=== PATIENT | male | born 1990 | race Caucasian/White ===

== ENCOUNTER 2020-06-20 23:04 | Inpatient (IN) | payer OTHER ==
[~2020-06-20] VITALS: Ht 162.6 cm; Wt 56.7 kg
[2020-06-21 01:51] LABS: CALCIUM 8.5 mg/dL (8.5-10.1); CARBON DIOXIDE 27.2 mmol/L (21-32); CHLORIDE SERUM 105 mmol/L (98-107); CREATININE SERUM 1.4 mg/dL (0.7-1.3); GFR1 > 60 mL/min; GLUCOSE SERUM 184 mg/dL (74-106); POTASSIUM SERUM 3.8 mmol/L (3.5-5.1); SODIUM SERUM 142 mmol/L (136-145)
[2020-06-21 02:11] LABS: BASOPHIL % 0 % (0-2); PLATELET COUNT 365 x10^3mcL (130-400); RED CELL DISTRIBUTION WIDTH 14.2 % (11.5-14.5)
[2020-06-21 02:54] LABS: UA SPECIFIC GRAVITY >=1.030 (1.005-1.035); microscopic required? YES; urine erythrocyte 3+ (NEGATIVE)
[2020-06-21 03:10] VITALS: BP 101/60
[2020-06-21 03:12] LABS: ALBUMIN 3.4 g/dL (3.4-5.0); ALT/SGPT 33 U/L (16-63); AST/SGOT 77 U/L (15-37); BILIRUBIN TOTAL 0.23 mg/dL (0.20-1.00); TOTAL PROTEIN, SERUM 6.3 g/dL (6.4-8.2)
[2020-06-21 03:12] LABS: AMPHETAMINE QUAL UR POSITIVE (See below)
[2020-06-21 03:13] LABS: ALKALINE PHOSPHATASE 80 U/L (46-116)
[2020-06-21 05:39] VITALS: BP 94/61
[2020-06-21 07:14] LABS: BASOPHIL % 0.2 % (0-2); PLATELET COUNT 362 x10^3mcL (130-400)
[2020-06-21 07:35] LABS: CALCIUM 8.5 mg/dL (8.5-10.1); CARBON DIOXIDE 26.9 mmol/L (21-32); CHLORIDE SERUM 105 mmol/L (98-107); CREATININE SERUM 0.8 mg/dL (0.7-1.3); GFR1 > 60 mL/min; GLUCOSE SERUM 109 mg/dL (74-106); POTASSIUM SERUM 4.2 mmol/L (3.5-5.1); SODIUM SERUM 139 mmol/L (136-145)
[2020-06-21 07:38] LABS: RED CELL DISTRIBUTION WIDTH 14.6 % (11.5-14.5)
[2020-06-21 08:34] VITALS: BP 112/68
[2020-06-21 09:26] LABS: CHOLESTEROL/HDL RATIO 1.5
[2020-06-21 09:27] LABS: T3 TOTAL 0.99 ng/mL
[2020-06-21 10:04] LABS: FREE T4 1.14 ng/dL (0.76-1.46); FREE THYROXINE INDEX 2.7 ug/dL (1.4-4.5); T4(THYROXINE) 6.8 ug/dL (4.7-13.3)
[2020-06-21 12:35] VITALS: BP 122/81
[2020-06-21 16:23] VITALS: BP 108/65
[2020-06-22] MEDS ORDERED: MOT600 PO (11:41)
== END 2020-06-21 17:25 | disposition left against medical advice (07) | DRG 342 ==
LOC: ED 23:04 → MU 06-21 01:17
PROVIDERS: Specialist; ADMIT Internal Medicine; ATTEND Internal Medicine
PROC: 2W3SX1Z Immobilization of Right Foot using Splint (ICD-10-PCS; principal; 2020-06-21)
DX: S82.841A Displaced bimalleolar fracture of right lower leg, initial encounter for closed fracture (principal); N17.0 Acute kidney failure with tubular necrosis; F15.10 Other stimulant abuse, uncomplicated; F17.210 Nicotine dependence, cigarettes, uncomplicated; S90.811A Abrasion, right foot, initial encounter; F12.10 Cannabis abuse, uncomplicated; Z53.29 Procedure and treatment not carried out because of patient's decision for other reasons; J45.909 Unspecified asthma, uncomplicated; V49.9XXA Car occupant (driver) (passenger) injured in unspecified traffic accident, initial encounter; Y93.89 Activity, other specified; Z59.0 Homelessness; Y92.89 Other specified places as the place of occurrence of the external cause; Y99.8 Other external cause status; Z56.0 Unemployment, unspecified
CPT/HCPCS: 84439; G0378; G0480; J2270; J7030; Q0092

== ENCOUNTER 2020-06-21 20:26 | Inpatient (IN) | payer OTHER ==
[~2020-06-21] VITALS: Ht 177.8 cm; Wt 95.3 kg
[2020-06-21 21:11] VITALS: Ht 177.8 cm; Wt 95.3 kg
[2020-06-22 02:19] VITALS: BP 91/51
[2020-06-22 05:45] VITALS: BP 104/61
[2020-06-22 07:14] LABS: PLATELET COUNT 309 x10^3mcL (130-400)
[2020-06-22 07:32] LABS: CALCIUM 8.4 mg/dL (8.5-10.1); CARBON DIOXIDE 28.5 mmol/L (21-32); CHLORIDE SERUM 107 mmol/L (98-107); CREATININE SERUM 0.8 mg/dL (0.7-1.3); GFR1 > 60 mL/min; GLUCOSE SERUM 90 mg/dL (74-106); SODIUM SERUM 141 mmol/L (136-145)
[2020-06-22 07:42] LABS: RED CELL DISTRIBUTION WIDTH 14.6 % (11.5-14.5)
[2020-06-22 08:18] VITALS: BP 116/69
[2020-06-22] MEDS ORDERED: MOT600 PO (11:41)
[2020-06-22 12:27] VITALS: BP 115/70
[2020-06-22 13:19] VITALS: BP 115/70
[2020-06-22 17:03] VITALS: BP 119/68
== END 2020-06-22 17:17 | disposition home or self-care (01) | DRG 342 ==
LOC: ED 20:26 → MU 06-22 00:54
PROVIDERS: ADMIT Internal Medicine; ATTEND Internal Medicine
DX: S82.841A Displaced bimalleolar fracture of right lower leg, initial encounter for closed fracture (principal); F12.10 Cannabis abuse, uncomplicated; J45.909 Unspecified asthma, uncomplicated; F15.10 Other stimulant abuse, uncomplicated; Z59.0 Homelessness; V49.9XXA Car occupant (driver) (passenger) injured in unspecified traffic accident, initial encounter; Y93.89 Activity, other specified; Y92.89 Other specified places as the place of occurrence of the external cause; Y99.8 Other external cause status; Z71.51 Drug abuse counseling and surveillance of drug abuser
CPT/HCPCS: G0378; J7030; Q0092